=== PATIENT | male | born 2005 | race Caucasian/White ===

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

== ENCOUNTER 2024-09-25 00:23 | Emergency (ER) | payer OTHER ==
[~2024-09-25] VITALS: Ht 188 cm; Wt 132.2 kg
[2024-09-25] MEDS: LIDOCAINE 1% HCL (LOCAL ANESTH.) INJ 20ML MDV ID ONE (01:16)
[2024-09-25] MEDS ORDERED: AUG875T PO (02:33)
[2024-09-25] MEDS ORDERED: IBUP-1456 PO (02:33)
--- NOTE | 2024-09-25 02:33 | ED.PDOC ---
HPI Comments This is a 19-year-old male presents to the ED chief complaint right index finger laceration. Patient states he was messing around with his bug knife and accidentally cut his right hand 2nd digit. Bleeding controlled in triage. He denies any numbness or weakness. Denies any other known lacerations. Chief Complaint: Laceration Time Seen by MD: 00:36 Primary Care Provider: Miguel Johnson Notes: Nurses Notes, Medications, Allergies Allergies: Coded Allergies: Shellfish Allergy (Verified Allergy, Unknown, 09/25/24) Home Meds Active Scripts Ibuprofen (Ibuprofen) 800 Mg Tab, 1 TAB PO TID PRN for 4 Days, #12 TAB 1 Refill Prov:SUE CELIS [employer] 09/25/24 Amoxicillin & Pot Clavulanate (AUGMENTIN TABLET) 875 Mg Tb, 875 MG PO BID for 7 Days, #14 TAB Prov:SUE CELIS [facility] 09/25/24 Mode of Arrival: Ambulatory Complexity: Intermediate Laceration Length (cm): 4 Past Medical History PAST MEDICAL HISTORY: Denies Surgical History: Denies all surgeries Family History Family History: Reviewed,noncontributory to illness, No family hx of Cancer, No family hx of DM, No family hx of Heart prakash, No family hx of HTN, No family hx ofKidney prakash, No family hx of Liver prakash, No family hx of Lung prakash, No family hx of Stroke Family History (Other): Triple A Social History Smoker: Non-Smoker Alcohol: Occasionally Drugs: Denies Drug Use Lives In: Home Constitutional: denies: chills, diaphoresis, fatigue, fever, malaise, sweats, weakness, others EENTM: denies: blurred vision, double vision, ear bleeding, ear discharge, ear drainage, ear pain, ear ringing, eye pain, eye redness, hearing loss, mouth pain, mouth swelling, nasal discharge, nose bleeding, nose congestion, nose pain, photophobia, tearing, throat pain, throat swelling, voice changes, others Respiratory: denies: cough, hemoptysis, orthopnea, SOB at rest, shortness of breath, SOB with excertion, stridor, wheezing, others Cardiovascular: denies: chest pain, dizzy spells, diaphoresis, Dyspnea on exertion, edema, irregular heart beat, left arm pain, lightheadedness, palpitations, PND, syncope, others Gastrointestinal: denies: abdomen distended, abdominal pain, blood streaked bowels, constipated, diarrhea, dysphagia, difficulty swallowing, hematemesis, melena, nausea, poor appetite, poor fluid intake, rectal bleeding, rectal pain, vomiting, others Genitourinary: denies: burning, dysuria, flank pain, frequency, hematuria, incontinence, penile discharge, penile sore, pain, testicle pain, testicle swelling, urgency, others Neurological: denies: dizziness, fainting, headache, left sided numbness, left sided weakness, numbness, paresthesia, pre-existing deficit, right sided numbness, right sided weakness, seizure, speech problems, tingling, tremors, weakness, others Musculoskeletal: denies: back pain, gout, joint pain, joint swelling, muscle pain, muscle stiffness, neck pain, others Integumetry: reports: laceration (Right index finger); denies: bruises, change in color, change in hair/nails, dryness, lesions, lumps, rash, wounds, others Allergic/Immunocompromised: denies: Difficulty Healing, Frequent Infections, Hives, Itching, others Hematologic/Lymphatic: denies: anemia, blood clots, easy bleeding, easy bruising, swollen glands, others Endocrine: denies: excessive hunger, excessive sweating, excessive thirst, excessive urination, flushing, intolerance to cold, intolerance to heat, unexplained weight gain, unexplained weight loss, others Psychiatric: denies: anxiety, bipolar disorder, depression, hopeless, panic disorder, schizophrenia, sleepless, suicidal, others Physical Exam General Appearance: No Apparent Distress, Normal HEENT: Pharynx Normal Neck: Full Range of Motion, Non-Tender Respiratory: Lungs Clear, No Respiratory Distress, Normal Breath Sounds Cardiovascular: No Murmur, Normal Peripheral Pulses, Regular Rate/Rhythm Breast Exam: Deferred Gastrointestinal: Non Tender, Soft Genitalia: Deferred Pelvic: Deferred Rectal: Deferred Extremities: Normal capillary refill, Normal inspection, Normal range of motion Musculoskeletal : Apperance: Normal Neurologic: Alert, director general II-XII nml as Tested, No Motor Deficits, Normal Affect, Normal Mood, No Sensory Deficits Cerebellar Function: Normal Reflexes: Normal Skin: Dry, Lacerations (Approximate 1 in laceration to right posterior plantar index finger. Capillary refill less than 3 seconds. Sensory motion and st rength intact. Bleeding controlled.), Normal Color, Warm Lymphatic: No Adenopathy Was a procedure done? Was a procedure done?: Yes Sedation Sedation?: No Informed consent obtained: Yes Laceration Repair : Location Right hand index finger Length 1 in Anesthetic: Lidocaine, Without epi Laceration Repair Prep: Saline, Betadine Laceration Repair Wound Comple: epidermis/dermis repair Laceration Repair: Number of sutures (Eight), Simple Informed consent obtained: Yes Risks, benefits, and alternati: Yes Notes Minimal blood loss laceration with good approximation patient tolerated well. Differential diagnosis Generic Laceration: Neurovascular Injury, Laceration, Avulsion X-Ray, Labs, Meds, VS Vital Signs Date Time Temp Pulse Resp B/P (MAP) Pulse Ox O2 Delivery O2 Flow Rate FiO2 09/25/24 02:50 98.6 102 19 140/59 (86) 95 98.6 09/25/24 01:14 88 16 95 Room Air 09/25/24 00:37 98.6 88 16 141/75 (97) 95 Current Medications Medications (Trade) Dose Ordered Sig/Angelika Route Start Time Stop Time Status Last Admin Diphtheria/ Tetanus/Acell Pertussis (Boostrix T-Dap) 0.5 ml ONCE ONCE IM 09/25/24 02:45 09/25/24 02:46 DC 09/25/24 02:46 X-Ray, Labs, Meds, VS Comment Right index finger laceration requiring 8 sutures for closure. Patient given Tdap. Patient is started prophylactically on antibiotics. Patient given prescription for ibuprofen 800 mg for home. Finger placed in frog splint. Advised to follow up with PCP, urgent care or ER for suture removal within 7-10 days. Return to the ER for uncontrolled bleeding, signs and symptoms of infec tion. Agrees with discharge plan of care. Suture care instructions provided. Time of 1ST Reevaluation: 02:53 Reevaluation 1ST: Improved Patient Education/Counseling: Prognosis, Need For Follow Up Family Education/Counseling: No Family Present Departure 1 Departure Time of Disposition: 02:33 Impression: Primary Impression: Laceration of finger Qualified Codes: S61.210A - Laceration without foreign body of right index f nathanael without damage to nail, initial encounter Disposition: HOME / SELF CARE / HOMELESS Condition: Stable e-Prescriptions Ibuprofen (Ibuprofen) 800 Mg Tab 1 TAB PO TID PRN for 4 Days, #12 TAB 1 Refill Prov: SUE CELIS 09/25/24 Amoxicillin & Pot Clavulanate (AUGMENTIN TABLET) 875 Mg Tb 875 MG PO BID for 7 Days, #14 TAB Prov: SUE CELIS 09/25/24 Discharged With: Self Critical Care Note Critical Care Time?: No Stability Stability form required: No SUE CELIS Sep 25, 2024 02:33
[2024-09-25] MEDS: TETANUS-DIPTH-ACEL PERTUSSIS 0.5ML SYR Tdap IM ONE (02:46)
[2024-09-25 02:50] VITALS: BP 140/59; PULSE 102; RESP 19; TEMP 98.6; O2SAT 95
== END 2024-09-25 02:51 | disposition home or self-care (01) ==
LOC: ER 00:23
DX: S61.210A Laceration without foreign body of right index finger without damage to nail, initial encounter (principal); Z91.013 Allergy to seafood; Z79.899 Other long term (current) drug therapy; W26.0XXA Contact with knife, initial encounter; Y93.89 Activity, other specified; Y92.89 Other specified places as the place of occurrence of the external cause; Y99.8 Other external cause status
CPT/HCPCS: 12001; 90471; 90715; 99283; J2003